=== PATIENT | female | born 1985 | race Caucasian/White ===

== ENCOUNTER 2022-10-20 17:35 | Emergency (ER) | payer BC, SELFPAY ==
[2022-10-20 17:45] VITALS: BP 137/84; PULSE 115; RESP 18; TEMP 36.8; O2SAT 100
[2022-10-20 18:30] LABS: Basophils Absolute Auto 0.03 K/mm3 (0.00-0.10); Basophils Percent Auto 0.4 % (0.0-1.0); Eosinophils Absolute Auto 0.23 K/mm3 (0.02-0.50); Eosinophils Percent Auto 3.1 % (1.0-6.0); Hematocrit 37.4 % (35.0-49.0); Hemoglobin 12.8 g/dL (12.0-15.0); Immature Granulocyte Absolute 0.02 K/mm3 (0.00-0.00); Immature Granulocyte Percent A 0.3 % (0.0-0.0); Lymphocytes Absolute Auto 1.47 K/mm3 (1.10-4.50); Lymphocytes Percent Auto 20.1 % (18.0-42.0); Mean Corpuscular HGB Conc 34.2 g/dL (32.0-36.0); Mean Corpuscular Hemoglobin 31.1 pg (27.0-31.0); Mean Corpuscular Volume 90.8 fL (78.0-102.0); Mean Platelet Volume 9.3 fl (9.2-11.8); Monocytes Absolute Auto 0.51 K/mm3 (0.10-0.90); Neutrophils Absolute Auto 5.1 K/mm3 (1.7-7.2); Neutrophils Percent Auto 69.1 % (50.0-70.0); Platelet Count Result 270 K/mm3 (150-420); Red Blood Count 4.12 M/mm3 (4.20-5.40); Red Cell Distribution Width 12.8 % (11.6-14.4); White Blood Count 7.3 K/mm3 (4.8-10.8)
[2022-10-20] MEDS: SODIUM CHLORIDE 0.9% IV 1,000 ML 999 ML IV CONT (18:43)
[2022-10-20] MEDS: ONDANSETRON INJ 4 MG/2 ML VIAL IV PUSH (18:44)
[2022-10-20 19:12] LABS: Alanine Aminotransferase 15 U/L (14-59); Albumin Level 3.2 g/dL (3.4-5.0); Alkaline Phosphatase 58 U/L (46-116); Anion Gap 10 mmol/L (8-16); Aspartate Amino Transferase 13 U/L (15-37); Bilirubin,Total 0.3 mg/dL (0.00-1.00); Blood Urea Nitrogen 6 mg/dL (7-18); Calcium 8.5 mg/dL (8.5-10.1); Carbon Dioxide 26 mmol/L (21-32); Chloride 103 mmol/L (98-108); Estimated CRCL calculation 116 ml/min; Estimated Glomerular Filt Rate > 60; Glucose 105 mg/dL (70-99); Osmolality Calculated 285 mOsm/kg (285-295); Potassium 3.3 mmol/L (3.5-5.1); Sodium 139 mmol/L (136-145); Total Protein 6.5 g/dL (6.4-8.2)
[2022-10-20 19:24] LABS: Appearance Urine Clear (Clear); Bilirubin Urine Negative (Negative); Blood Urine Negative (Negative); Color Urine Light Yellow (Yellow); Glucose Urine UA Negative (Negative); Ketones Urine Negative (Negative); Leukocyte Esterase Ur Trace LEU/UL (Negative); Nitrate Urine Positive (Negative); Protein Urine Negative (Negative); Specific Grav Ur >= 1.030 (1.010-1.020); pH Urine 5.5 (5.0-8.0)
[2022-10-20 19:29] LABS: Add Urine Microscopic? YES
[2022-10-20 19:30] LABS: Bacteria Urine 4+ /hpf; RBC Urine 0-2 /hpf (0-2); Squamous Epithelial Cell Urine Few /hpf (Few); WBC Urine 16-20 /hpf (0-3)
--- NOTE | 2022-10-20 19:40 | ED.ABDPAIN ---
HPI - Abdominal Pain General Chief Complaint: Abdominal Pain Stated Complaint: cramping Time Seen by Provider: 10/20/22 17:56 Source: patient Mode of arrival: ambulatory Limitations: no limitations History of Present Illness HPI narrative: this is a 37-year-old female who presents with crampy abdominal pain the patient states that she is approximately 13 weeks and has been having episodes of crampy abdominal pain with nausea with has not had any follow-up with her motor assembler, knee and there is no dysuria no vaginal bleeding no flank pain no fever chills. MD elicited complaint: abdominal pain Related Data Allergies Allergy/AdvReac Type Severity Reaction Status Date / Time azithromycin Allergy Mild Hives / Verified 10/20/22 18:02 Red Face Review of Systems Review of Systems: All systems reviewed & are unremarkable except as noted in HPI and below PMFSH Past Medical History Medical History Patient denies medical problems Exam Const: General: healthy appearing Nutritional Appearance: well nourished Orientation/consciousness: patient oriented x3 Limitations: no limitations Eyes: Conjunctivae: conjunctivae normal Pupils: Equal, round and reactive pupils present Neck: Neck: normal visual inspection Chest: Chest palpation & inspection: normal inspection of the chest Cardio: Rate: regular rate Rhythm: regular rhythm GI: GI Palp: Yes Soft to palpation Auscultation: normal bowel sounds : General: Yes bladder normal to palpation Back/Spine/Pelvis: Back: no CVA tenderness Skin: General skin exam: normal color Rashes: no rashes Wounds: no wounds Neuro: General: patient oriented x3 Cranial nerves: Yes Nystagmus not present Extrem: General: normal to inspection Psych: Mental Status: mental status grossly normal Course Course Emergency Course: patient received IV fluids and after reassessment feels markedly improved, patient also received IV Zofran blood work performed showed that beta hCG was at over 30,000, which puts her at about 14 to 16 weeks and advised follow-up with motor assembler. Vital Signs Vital signs: Vital Signs Temperature 36.8 C 10/20/22 17:45 Pulse Rate 115 H 10/20/22 17:45 Respiratory Rate 18 10/20/22 17:45 Blood Pressure 137/84 10/20/22 17:45 Pulse Oximetry 100 10/20/22 17:45 Oxygen Delivery Room Air 10/20/22 17:45 Temperature 36.8 C 10/20/22 17:45 Pulse Rate 115 H 10/20/22 17:45 Respiratory Rate 18 10/20/22 17:45 Blood Pressure 137/84 10/20/22 17:45 Pulse Oximetry 100 10/20/22 17:45 Oxygen Delivery Room Air 10/20/22 17:45 MDM - Abdominal Pain Lab Data 10/20/22 18:25 10/20/22 18:25 Labs: Lab Results 10/20/22 10/20/22 Range/Units 18:25 19:22 WBC 7.3 (4.8-10.8) K/mm3 RBC 4.12 L (4.20-5.40) M/mm3 Hgb 12.8 (12.0-15.0) g/dL Hct 37.4 (35.0-49.0) % MCV 90.8 (78.0-102.0) fL MCH 31.1 H (27.0-31.0) pg MCHC 34.2 (32.0-36.0) g/dL RDW 12.8 (11.6-14.4) % Plt Count 270 (150-420) K/mm3 MPV 9.3 (9.2-11.8) fl Immature Gran % (Auto) 0.3 H (0.0-0.0) % Neut % (Auto) 69.1 (50.0-70.0) % Lymph % (Auto) 20.1 (18.0-42.0) % Green % (Auto) 7.0 (2.0-11.0) % Eos % (Auto) 3.1 (1.0-6.0) % Baso % (Auto) 0.4 (0.0-1.0) % Lymph # (Auto) 1.47 (1.10-4.50) K/mm3 Green # (Auto) 0.51 (0.10-0.90) K/mm3 Eos # (Auto) 0.23 (0.02-0.50) K/mm3 Baso # (Auto) 0.03 (0.00-0.10) K/mm3 Abs Immat Gran (auto) 0.02 H (0.00-0.00) K/mm3 Absolute Neuts (auto) 5.1 (1.7-7.2) K/mm3 Absolute Nucleated RBC 0.00 (0.00-0.00) K/mm3 Nucleated RBC % 0.0 (0-0.0) % Sodium 139 (136-145) mmol/L Potassium 3.3 L (3.5-5.1) mmol/L Chloride 103 (98-108) mmol/L Carbon Dioxide 26 (21-32) mmol/L Anion Gap 10 (8-16) mmol/L BUN 6 L (7-18) mg/dL Creatinine 0.41
[2022-10-20] MEDS: AMOXICILLIN 500 MG CAPSULE PO (19:53)
[2022-10-20 20:06] VITALS: BP 133/93; PULSE 75; RESP 18; TEMP 36.4; O2SAT 98
--- NOTE | 2022-10-23 13:40 | PC.NURSE ---
Final urine culture report: Mixed genital digna, not indicative of UTI, No further medication or treatment needed. per dr. hernandez.
== END 2022-10-20 20:08 | disposition home or self-care (01) ==
PROVIDERS: Emergency Provider Emergency Medicine
DX: O23.11 Infections of bladder in pregnancy, first trimester (principal); Z3A.13 13 weeks gestation of pregnancy
CPT/HCPCS: 36415; 80053; 81001; 84702; 85025; 87086; 87088; 96361; 96374; 99284; A9270; J2405; J7030